=== PATIENT | male | born 1990 | race Two or more races ===

== ENCOUNTER 2017-12-31 18:40 | Emergency (ER) | payer SELFPAY ==
[~2017-12-31] VITALS: Ht 162.6 cm; Wt 77.3 kg
[2017-12-31 18:44] VITALS: Ht 162.6 cm; Wt 77.3 kg
[2017-12-31 19:27] VITALS: BP 120/83
== END 2017-12-31 19:27 | disposition home or self-care (01) ==
LOC: D.ER 18:40
DX: S41.131A Puncture wound without foreign body of right upper arm, initial encounter (principal); X58.XXXA Exposure to other specified factors, initial encounter; Y93.89 Activity, other specified; Y92.89 Other specified places as the place of occurrence of the external cause